=== PATIENT | female | born 1950 | race African-American/Black ===

== ENCOUNTER 2016-12-11 08:54 | Inpatient (IN) ==
[2016-12-09 15:09] LABS: Apearance,Urine Slightly Hazy (Clear); Basophils # 0.1 10*3/uL (0.0-0.2); Bilirubin,Urine Negative (Negative); Blood, Urine Negative (Negative); Eosinophils # 0.2 10*3/uL (0.0-0.87); Eosinophils % 2.6 % (0.00-10.9); Glucose,Urine (UA) Negative (Negative); Hematocrit 41.1 VOL% (35.7-47.0); Hemoglobin 13.7 GM/DL (12.0-16.0); Ketones,Urine Negative (Negative); Lymphocytes # 2.2 10*3/uL (1.4-4.0); Lymphocytes % 36.9 % (21.3-54.2); Mean Corpuscular HGB Conc 33.3 GM/DL (32-36); Mean Corpuscular Hemoglobin 29 PG (27-34); Mean Corpuscular Volume 87.3 FL (87-102); Mean Platelet Volume 11.2 FL (9.6-12.0); Monocytes # 0.6 10*3/uL (0.11-0.8); Monocytes % 9.8 % (1.7-12.7); Mucus,Urine Occasional /LPF (Occasional); Neutrophils # 2.9 10*3/uL (1.4-7.4); Neutrophils % 49.7 % (38.7-73.9); Nitrite,Urine Negative (Negative); Platelet Count 215 T/CUMM (130-400); Protein,Urine Negative; RBC,Urine 2 /HPF (0-4); Red Blood Count 4.71 MC/CUMM (3.8-5.5); Red Cell Distribution Width 13.2 % (9.3-17.3); Squamous Epithelial Cell,Urine Occasional /HPF (0-10); Urine Color Yellow (Yellow); Urine Specific Gravity 1.015 (1.001-1.035); Urine Urobilinogen < 2.0 EU/DL (0.2-1.0); WBC,Urine 9 /HPF (0-6); White Blood Count 5.8 T/CUMM (4-12)
[2016-12-09 15:21] LABS: PT Patient Result 10.7 SECS; Partial Thromboplastin Time 29.6 SECS (0-40)
[2016-12-09 15:39] LABS: Bilirubin,Total 0.6 MG/DL (0.2-1.0); Calcium 9.1 MG/DL (8.5-10.1); Osmolality,Calculated 279.3 MOS/KG (273-304); Potassium 4.2 MMOL/L (3.5-5.1); Total Protein 7.2 G/DL (6.4-8.3)
[~2016-12-11 08:54] MED LIST: VANCOMYCIN INJ 1,000 MG in SODIUM CHLORIDE 0.9% 250 ML IV ONE
--- NOTE | 2016-12-11 09:26 | EKG Report ---
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
[2016-12-11 09:39] LABS: Apearance,Urine Slightly Hazy (Clear); Bacteria,Urine Occasional /HPF (Few); Bilirubin,Urine Negative (Negative); Blood, Urine Small mg/dL (Negative); Glucose,Urine (UA) Negative (Negative); Ketones,Urine Negative (Negative); Mucus,Urine Occasional /LPF (Occasional); Nitrite,Urine Negative (Negative); Protein,Urine Negative; RBC,Urine 4 /HPF (0-4); Squamous Epithelial Cell,Urine Occasional /HPF (0-10); Urine Color Yellow (Yellow); Urine Specific Gravity 1.014 (1.001-1.035); Urine Urobilinogen < 2.0 EU/DL (0.2-1.0); WBC,Urine 61 /HPF (0-6)
--- NOTE | 2016-12-11 09:43 | History and Physical Update ---
History and Physical Update - History and Physical H&P was reviewed, the patient examined and there: are no changes in the patients condition since last H&P was completed. - Dictation Physical: refer to scanned H&P - Physical Exam History and Physical Changes: UTI noted pre-op. Antibiotics started yesterday.
--- NOTE | 2016-12-11 09:45 | XRay Report ---
XR chest 1V portable Indication: Respiratory preoperative evaluation Comparison: 28 January 2015 Findings: The heart and mediastinum are normal in size and configuration. The pulmonary vascularity is normal in caliber. No lung infiltrates, effusions, pneumothorax or other abnormality is demonstrated. Impression: Normal chest x-ray PROCEDURE INTERPRETED AT [facility] DEPARTMENT OF RADIOLOGY Final Report Signed by: Dr. George Jay
[2016-12-11] MEDS ORDERED: TRANEXAMIC ACID 1,000 MG/10 ML VIAL IV ONE (09:50)
[2016-12-11] MEDS ORDERED: EPINEPHrine 1 MG/ML VIAL ONE (09:57)
[2016-12-11] MEDS ORDERED: MORPHINE 10 MG/1 ML VIAL ONE (09:57)
[2016-12-11] MEDS ORDERED: methylPREDNISolone SOD SUC 125 MG/2 ML VIAL ONE (09:58)
[2016-12-11] MEDS ORDERED: BUPIVACAINE 0.5% 50 ML VIAL ONE (09:59)
[2016-12-11] MEDS ORDERED: VANCOMYCIN 1,000 MG VIAL ONE (10:11)
[2016-12-11] MEDS ORDERED: ceFAZolin 1,000 MG VIAL ONE (10:11)
[2016-12-11] MEDS ORDERED: DIAZEPAM 5 MG TABLET ONE (10:11)
[2016-12-11] MEDS ORDERED: SODIUM CHLORIDE 0.9% 100 ML IV ONE (10:12)
[2016-12-11] MEDS ORDERED: PANTOPRAZOLE 40 MG TABLET PO ONE (10:12)
[2016-12-11] MEDS ORDERED: DIAZEPAM 5 MG TABLET PO ONE (10:12)
[2016-12-11] MEDS ORDERED: MORPHINE 10 MG/10 ML VIAL ONE (10:14)
[2016-12-11] MEDS: LACTATED RINGERS 1,000 ML IV SCH ×3 (10:24→15:30)
[2016-12-11] MEDS ORDERED: PROPOFOL 200 MG/20 ML VIAL IV ONE (10:33)
[2016-12-11] MEDS ORDERED: PHENYLEPHRINE 1 MG/10 ML SYRINGE IV ONE (10:33)
[2016-12-11] MEDS ORDERED: LIDOCAINE 2% 5 ML VIAL ONE (10:33)
[2016-12-11] MEDS ORDERED: diphenhydrAMINE 50 MG/1 ML VIAL IV PRN (12:01)
[2016-12-11] MEDS ORDERED: hydrOXYzine HCL 25 MG/1 ML VIAL IM PRN (12:01)
[2016-12-11] MEDS ORDERED: ONDANSETRON 4 MG/2 ML VIAL IV PRN (12:01)
[2016-12-11] MEDS ORDERED: LACTATED RINGERS 1,000 ML IV SCH (12:30)
[2016-12-11] MEDS ORDERED: SODIUM CHLORIDE 0.9% 1,000 ML IV SCH (12:30)
[2016-12-11] MEDS ORDERED: NALOXONE 0.4 MG/ML VIAL IV PRN (13:35)
[2016-12-11] MEDS ORDERED: diphenhydrAMINE CAP 25 MG CAPSULE PO PRN (13:35)
[2016-12-11] MEDS ORDERED: ZALEPLON 5 MG CAPSULE PO PRN (13:35)
[2016-12-11] MEDS ORDERED: GLUCAGON 1 MG VIAL IM PRN (13:35)
[2016-12-11] MEDS ORDERED: MAGNESIUM HYDROXIDE SUSP 30 ML UDCUP PO PRN (13:35)
[2016-12-11] MEDS ORDERED: DEXTROSE 50% 25 GM/50 ML VIAL IV PRN (13:35)
[2016-12-11] MEDS ORDERED: MIDAZOLAM 2 MG/2 ML VIAL ONE (14:00)
[2016-12-11] MEDS ORDERED: SODIUM CHLORIDE 0.9% 250 ML IV ONE (14:01)
[2016-12-11] MEDS ORDERED: fentaNYL 100 MCG/2 ML VIAL ONE (14:01)
[2016-12-11] MEDS ORDERED: ACETAMINOPHEN 1,000 MG/100 ML VIAL IV ONE (14:01)
[2016-12-11] MEDS ORDERED: LACTATED RINGERS 1,000 ML IV ONE (14:01)
[2016-12-11] MEDS ORDERED: ePHEDrine 50 MG/ML AMP ONE (14:06)
--- NOTE | 2016-12-11 14:11 | Anesthesia Post-Op ---
Anesthesia Post OP - Post Ansesthetic Evaluation Patient seen in post op: Yes Resp: within normal limits CV: within normal limits Mental: within normal limits Temp: within normal limits Hjpa-Wm-Baddhrxhz: within normal limits Nausea and Vomiting: within normal limits Pain: within normal limits
[2016-12-11] MEDS: MORPHINE PCA 30 MG/30 ML SYRINGE IV SCH (14:17)
[2016-12-11 14:19] LABS: Apearance,Urine CLEAR (Clear); Bilirubin,Urine Negative (Negative); Blood, Urine Small mg/dL (Negative); Glucose,Urine (UA) Negative (Negative); Ketones,Urine Negative (Negative); Nitrite,Urine Negative (Negative); Protein,Urine Negative; RBC,Urine 7 /HPF (0-4); Squamous Epithelial Cell,Urine Occasional /HPF (0-10); Urine Color Yellow (Yellow); Urine Specific Gravity 1.015 (1.001-1.035); Urine Urobilinogen < 2.0 EU/DL (0.2-1.0); WBC,Urine 1 /HPF (0-6)
--- NOTE | 2016-12-11 15:01 | XRay Report ---
XR hip 1V RT Indication: Joint replacement (right hip) Comparison: Right femur x-ray dated September 25, 2015 Technique: Single frontal view of the right hip Findings: Status post total right hip arthroplasty. No evidence of immediate hardware failure. Surgical drain and superficial skin angel overlie the hip. Subcutaneous and joint space air noted which is likely postoperative. IMPRESSION: Status post total right hip arthroplasty. PROCEDURE INTERPRETED AT [facility] DEPARTMENT OF RADIOLOGY Final Report Signed by: Dr Dominick Crenshaw
[2016-12-11] MEDS: INSULIN LISPRO 100 UNIT/ML SUBCUT SCH ×2 (16:29→21:01)
--- NOTE | 2016-12-11 16:47 | Orthopedic Progress Note ---
Assessment and Plan (1) Status post total replacement of right hip Status: Acute Assessment and plan: Routine perioperative antibiotics Rocephin for UTI noted on admit DVT prophylaxis beginning Friday Out of bed with therapy twice daily Current Visit: Yes Orthopedics - Subjective Interval history: Patient is lying in the bed comfortably. She has no complaints. On exam her dressings clean and dry. She has a 2+ dorsalis pedis pulse. She can wiggle her toes, she can plantarflex and dorsiflex the ankle. Exam - Constitutional Vitals: Period Temp Pulse Resp BP Sys/Damico Pulse Ox Last 24 Hr 97.3 F-97.9 F 52-74 16-20 99-128/57-91 98-100 Results - Labs CBC & BMP: 12/09/16 14:54 12/09/16 14:54
[2016-12-11] MEDS: KETOROLAC 15 MG/1 ML VIAL IV SCH ×2 (17:16→23:36)
[2016-12-11] MEDS: cefTRIAXone 1,000 MG in SODIUM CHLORIDE 0.9% 100 ML IV SCH (17:16)
[2016-12-11] MEDS: ACETAMINOPHEN 500 MG TABLET PO SCH ×2 (17:16→23:36)
[2016-12-11] MEDS: metFORMIN 500 MG TABLET PO SCH (17:16)
[2016-12-11] MEDS: DOCUSATE SODIUM 100 MG CAPSULE PO SCH (21:01)
[2016-12-11] MEDS: SIMVASTATIN 20 MG TABLET PO SCH (21:01)
[2016-12-11] MEDS: ceFAZolin 2,000 MG in PREMIX 1 EACH IV SCH (21:03)
[2016-12-12] MEDS: LACTATED RINGERS 1,000 ML IV SCH ×4 (01:06→21:17)
[2016-12-12] MEDS: ceFAZolin 2,000 MG in PREMIX 1 EACH IV SCH (03:25)
[2016-12-12] MEDS: KETOROLAC 15 MG/1 ML VIAL IV SCH ×2 (05:11→13:26)
[2016-12-12] MEDS: ACETAMINOPHEN 500 MG TABLET PO SCH ×2 (05:13→12:48)
--- NOTE | 2016-12-12 07:15 | Orthopedic Progress Note ---
Assessment and Plan (1) Status post total replacement of right hip Status: Acute Assessment and plan: It was noted on postoperative radiographs that the cable around the proximal femur did not hold and was loose around the femoral neck. I discussed this with the patient this morning. I have recommended that we remove the cable. I believe that the posterior medial calcar will be stable and the stem should not subside due to the collar. Risks and benefits were discussed, we will return to the operating suite today for removal. Current Visit: Yes Orthopedics - Subjective Interval history: Pain is currently controlled. Patient has no complaints. On exam her dressings clean and dry, she is neurovascularly intact in the right lower extremity. Exam - Constitutional Vitals: Period Temp Pulse Resp BP Sys/Damico Pulse Ox Last 24 Hr 97.1 F-97.9 F 52-74 16-20 91-128/46-91 98-100 Results - Labs CBC & BMP: 12/12/16 07:35 12/12/16 07:35
[2016-12-12] MEDS: INSULIN LISPRO 100 UNIT/ML SUBCUT SCH ×4 (08:07→22:38)
[2016-12-12 08:26] LABS: Basophils % 0.3 % (0.0-0.8); Eosinophils % 0.5 % (0.00-10.9); Hematocrit 31.2 VOL% (35.7-47.0); Immature Granulocytes % 0.4 %; Immature Granulocytes Absolute 0.03 #; Lymphocytes # 1.4 10*3/uL (1.4-4.0); Lymphocytes % 18.5 % (21.3-54.2); Mean Corpuscular HGB Conc 32.7 GM/DL (32-36); Mean Corpuscular Hemoglobin 30 PG (27-34); Mean Corpuscular Volume 91.2 FL (87-102); Mean Platelet Volume 11.5 FL (9.6-12.0); Monocytes # 0.9 10*3/uL (0.11-0.8); Monocytes % 11.8 % (1.7-12.7); Neutrophils # 5.2 10*3/uL (1.4-7.4); Neutrophils % 68.5 % (38.7-73.9); Platelet Count 179 T/CUMM (130-400); Red Blood Count 3.42 MC/CUMM (3.8-5.5); Red Cell Distribution Width 13.3 % (9.3-17.3); White Blood Count 7.6 T/CUMM (4-12)
[2016-12-12 08:27] LABS: Hemoglobin 10.2 GM/DL (12.0-16.0)
[2016-12-12 08:49] LABS: Potassium 4.2 MMOL/L (3.5-5.1)
[2016-12-12] MEDS: DOCUSATE SODIUM 100 MG CAPSULE PO SCH ×2 (08:49→21:15)
[2016-12-12] MEDS: metFORMIN 500 MG TABLET PO SCH ×2 (08:49→18:54)
[2016-12-12] MEDS ORDERED: ceFAZolin 2,000 MG in SODIUM CHLORIDE 0.9% 100 ML IV ONE (09:00)
[2016-12-12] MEDS ORDERED: METOCLOPRAMIDE 10 MG/2 ML VIAL IV ONE (11:00)
[2016-12-12] MEDS ORDERED: ACETAMINOPHEN 325 MG TABLET PO PRN (13:37)
[2016-12-12] MEDS: MORPHINE PCA 30 MG/30 ML SYRINGE IV SCH (15:03)
[2016-12-12] MEDS ORDERED: DEXTROSE 50% 25 GM/50 ML VIAL IV PRN (16:43)
--- NOTE | 2016-12-12 16:52 | Anesthesia Post-Op ---
Anesthesia Post OP - Post Ansesthetic Evaluation Patient seen in post op: Yes Resp: within normal limits CV: within normal limits Mental: within normal limits Temp: within normal limits Ioje-Yu-[id number]: within normal limits Nausea and Vomiting: within normal limits Pain: within normal limits
[2016-12-12] MEDS ORDERED: SEVOFLURANE 1 UNIT/15 MINUTE INH ONE (16:56)
[2016-12-12] MEDS ORDERED: ONDANSETRON 4 MG/2 ML VIAL ONE (16:56)
[2016-12-12] MEDS ORDERED: MIDAZOLAM 2 MG/2 ML VIAL ONE (16:56)
[2016-12-12] MEDS ORDERED: fentaNYL 100 MCG/2 ML VIAL ONE (16:56)
[2016-12-12] MEDS ORDERED: PROPOFOL 200 MG/20 ML VIAL IV ONE (16:56)
--- NOTE | 2016-12-12 17:04 | XRay Report ---
Referring Physician: Jeffrey Vu Exam: XR right hip OR Date: December 12, 2016 at 3:34 PM Reason: Hardware removal right hip Comparison: Right hip x-rays December 11, 2016 Findings: One image of the right hip was provided after performance of the procedure. Fluoroscopy time was 19.0 seconds. The patient is again status post right total hip replacement. The previously seen surgical wire/catheter projecting at the right hip is no longer identified. No acute fracture or osseous destructive process is seen. Impression: Image is presumed satisfactory for the purpose of the procedure. PROCEDURE INTERPRETED AT [facility] DEPARTMENT OF RADIOLOGY Final Report Signed by: Dr. Promise Ogden
[2016-12-12] MEDS: cefTRIAXone 1,000 MG in SODIUM CHLORIDE 0.9% 100 ML IV SCH (18:54)
[2016-12-12] MEDS: SIMVASTATIN 20 MG TABLET PO SCH (21:15)
[2016-12-12] MEDS: CELECOXIB 200 MG CAPSULE PO SCH (21:15)
[2016-12-12] MEDS: ceFAZolin 2,000 MG in SODIUM CHLORIDE 0.9% 100 ML IV SCH (21:20)
[2016-12-13] MEDS: ceFAZolin 2,000 MG in SODIUM CHLORIDE 0.9% 100 ML IV SCH (03:44)
[2016-12-13 05:06] LABS: Basophils % 0.2 % (0.0-0.8); Eosinophils % 0.5 % (0.00-10.9); Hematocrit 31.7 VOL% (35.7-47.0); Hemoglobin 10.3 GM/DL (12.0-16.0); Immature Granulocytes % 0.4 %; Immature Granulocytes Absolute 0.03 #; Lymphocytes # 1.2 10*3/uL (1.4-4.0); Lymphocytes % 14.9 % (21.3-54.2); Mean Corpuscular HGB Conc 32.5 GM/DL (32-36); Mean Corpuscular Hemoglobin 30 PG (27-34); Mean Corpuscular Volume 90.8 FL (87-102); Mean Platelet Volume 11.9 FL (9.6-12.0); Monocytes # 0.9 10*3/uL (0.11-0.8); Monocytes % 11.3 % (1.7-12.7); Neutrophils % 72.7 % (38.7-73.9); Platelet Count 169 T/CUMM (130-400); Red Blood Count 3.49 MC/CUMM (3.8-5.5); Red Cell Distribution Width 13.3 % (9.3-17.3); White Blood Count 8.3 T/CUMM (4-12)
[2016-12-13] MEDS: LACTATED RINGERS 1,000 ML IV SCH (07:04)
--- NOTE | 2016-12-13 07:06 | Orthopedic Progress Note ---
Assessment and Plan (1) Status post total replacement of right hip Status: Acute Assessment and plan: DVT prophylaxis Continue antibiotics for UTI, will discontinue tomorrow Out of bed with therapy twice daily Discharge planning Current Visit: Yes Orthopedics - Subjective Interval history: Patient is currently comfortable, she had some pain last night but it has improved. On exam, her dressings clean and dry, she is neurovascularly intact. Hematocrit is 31 Exam - Constitutional Vitals: Period Temp Pulse Resp BP Sys/Damico Pulse Ox Last 24 Hr 97.7 F-100.1 F 69-108 12-110 93-139/52-83 90-100 Results - Labs CBC & BMP: 12/13/16 02:49 12/12/16 07:35
--- NOTE | 2016-12-13 07:12 | Discharge Summary ---
Hospital Course - Hospital Course Hospital Course: 66-year-old female admitted hospital following total hip arthroplasty. She tolerated procedure well was transferred to floor in stable condition postoperatively. Postoperative radiographs noted that there was failure of the cerclage cable, she was returned to the operating suite on postoperative day #1 for retrieval of the broken cable. No other complications were noted. She received routine antibiotics and thromboprophylaxis. She received Rocephin for a urinary tract infection noted on preoperative testing. She did well with therapy and once she was in bleeding safely she was subsequently discharged. Time of discharge her wound was clean and dry she is neurovascularly intact. Diagnosis - Discharge Diagnosis (1) Status post total replacement of right hip Status: Acute Specialty Discharge - Follow Up or Referrals Follow up with: Jeffrey Vu MD [Physician] - 12/26/16 8:00 am Discharge Plan - Discharge Data Disposition: Home Health Service Condition at Discharge: Stable Discharge Diet: advance to your usual diet Activity: ambulate only with your walker Hygiene: may shower Weight Bearing at Discharge: partial weight bearing (50lb PWB) Driving: not until seen by doctor Contact your physician if you experience:: fever over 101, Difficulty voiding, Redness or swelling, Nausea/Vomiting, Shortness of breath, Bleeding, pain uncontrolled by pain medications Wound / Dressing Care Instructions: Leave dressing in place until Friday, 2016, then change daily. Okay to shower, no tub soaks. Flavio out 12/26/2016 - Discharge Medications New HYDROcodone/ACETAMIN 7.5-325 [[place] 7.5-325] 1 - 2 tablet PO Q4H PRN #60 tablet PRN Reason: Pain Moderate (4-7) Aspirin EC Tab 325 mg PO DAILY #30 tablet Continue Simvastatin 20 mg PO BEDTIME metFORMIN [Glucophage] 500 mg PO BID W/MEALS Discontinued Aspirin [Ecotrin] 81 mg PO DAILY - Follow Up or Referral Follow Up: Jeffrey Vu MD [Physician] - 12/26/16 8:00 am - Forms/Instructions Additional Discharge Instructions: 50 pounds partial weightbearing, total hip precautions Exam - Constitutional Vitals: Period Temp Pulse Resp BP Sys/Damico Pulse Ox Last 24 Hr 97.7 F-100.1 F 69-108 12-110 93-139/52-83 90-100 Discharge Results Procedures and tests throughout hospitalization: Pending Orders 12/11/16 Urine Culture Routine 12/14/16 04:00 Comp Blood Count Auto Diff IN AM Labs on day of discharge: Labs from last 24 hours 12/13/16 12/13/16 12/12/16 06:54 02:49 18:59 WBC 8.3 RBC 3.49 L Hgb 10.3 L Hct 31.7 L MCV 90.8 MCH 30 MCHC 32.5 RDW 13.3 Plt Count 169 MPV 11.9 Neut % (Auto) 72.7 Lymph % (Auto) 14.9 L [place] % (Auto) 11.3 Eos % (Auto) 0.5 Baso % (Auto) 0.2 Neut # (Auto) 6.0 Lymph # (Auto) 1.2 L [place] # (Auto) 0.9 H Eos # (Auto) 0.0 Baso # (Auto) 0.0 Immature Gran % 0.4 Nucleated RBC % 0.0 Immature Gran # 0.03 Nucleated RBCs # 0.00 Sodium Potassium Chloride Carbon Dioxide Anion Gap BUN Creatinine GFR Calculation BUN/Creatinine Ratio Glucose POC Glucose 168 H 146 H Calculated Osmolality Calcium 12/12/16 12/12/16 12/12/16 17:41 11:06 07:35 WBC RBC Hgb Hct MCV MCH MCHC RDW Plt Count MPV Neut % (Auto) Lymph % (Auto) [place] % (Auto) Eos % (Auto) Baso % (Auto) Neut # (Auto) Lymph # (Auto) [place] # (Auto) Eos # (Auto) Baso # (Auto) Immature Gran % Nucleated RBC % Immature Gran # Nucleated RBCs # Sodium 143 Potassium 4.2 Chloride 106 Carbon Dioxide 29 Anion Gap 12.2 BUN 15 Creatinine 0.80 GFR Calculation 103 BUN/Creatinine Ratio 18.00 Glucose 143 H POC Glucose 106 102 Calculated Osmolality 287.0 Calcium 8.0 L 12/12/16 12/12/16 07:35 07:12 WBC 7.6 D RBC 3.42 L D Hgb 10.2 L D Hct 31.2 L MCV 91.2 MCH 30 MCHC 32.7 RDW 13.3 Plt Count 179 MPV 11.5 Neut % (Auto) 68.5 Lymph % (Auto) 18.5 L [place] % (Auto) 11.8 Eos % (Auto) 0.5 Baso % (Auto) 0.3 Neut # (Auto) 5.2 Lymph # (Auto) 1.4 [place] # (Auto) 0.9 H Eos # (Auto) 0.0 Baso # (Auto) 0.0 Immature Gran % 0.4 Nucleated RBC % 0.0 Immature Gran # 0.03 Nucleated RBCs # 0.00 Sodium Potassium Chloride Carbon Dioxide Anion Gap BUN Creatinine GFR Calculation BUN/Creatinine Ratio Glucose POC Glucose 132 H Calculated Osmolality Calcium Preliminary micro results at discharge 12/11/16 Unknown Urine Culture - Preliminary Urine,Voided No Growth at 24 hours. DS: Provider Date of admission: 12/11/16 08:54 Primary care physician: . No PCP Attending physician on admission: Jeffrey Vu MD Consults: 12/11/16 13:35 Consult to Case Mgmt/Social Srvs [CONS] Routine Reason for Case Mgmt/Social Srvs: Rehab Home Health Equipment Consult Comment: Bedside Commode, deliver to room 319 before D/C; Pt 5ft 7in 197 lbs. 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 12/12/16 16:59 Consult to Physical Therapy [CONS] Routine Reason for Physical Therapy: Other Consult Comment: Deliver a Standard Walker to room 319 before pt is D/C'd Discharging clinician: Jeffrey Vu MD
[2016-12-13] MEDS: INSULIN LISPRO 100 UNIT/ML SUBCUT SCH ×4 (09:31→22:26)
[2016-12-13] MEDS: metFORMIN 500 MG TABLET PO SCH ×2 (09:31→17:30)
[2016-12-13] MEDS: DOCUSATE SODIUM 100 MG CAPSULE PO SCH ×2 (09:31→20:10)
[2016-12-13] MEDS: ENOXAPARIN 40 MG/0.4 ML SYRINGE SUBCUT SCH (12:49)
[2016-12-13] MEDS: cefTRIAXone 1,000 MG in SODIUM CHLORIDE 0.9% 100 ML IV SCH (19:21)
[2016-12-13] MEDS: CELECOXIB 200 MG CAPSULE PO SCH (20:10)
[2016-12-13] MEDS: SIMVASTATIN 20 MG TABLET PO SCH (20:10)
[2016-12-14 06:57] LABS: Basophils % 0.5 % (0.0-0.8); Eosinophils # 0.2 10*3/uL (0.0-0.87); Eosinophils % 2.8 % (0.00-10.9); Hematocrit 31.6 VOL% (35.7-47.0); Hemoglobin 10.3 GM/DL (12.0-16.0); Immature Granulocytes % 0.4 %; Immature Granulocytes Absolute 0.03 #; Mean Corpuscular HGB Conc 32.6 GM/DL (32-36); Mean Corpuscular Hemoglobin 29 PG (27-34); Mean Corpuscular Volume 90.3 FL (87-102); Mean Platelet Volume 10.9 FL (9.6-12.0); Monocytes # 0.9 10*3/uL (0.11-0.8); Monocytes % 11.1 % (1.7-12.7); Neutrophils # 5.1 10*3/uL (1.4-7.4); Neutrophils % 61.2 % (38.7-73.9); Platelet Count 170 T/CUMM (130-400); Red Cell Distribution Width 13.2 % (9.3-17.3); White Blood Count 8.3 T/CUMM (4-12)
[2016-12-14] MEDS: INSULIN LISPRO 100 UNIT/ML SUBCUT SCH ×4 (09:24→20:32)
[2016-12-14] MEDS: metFORMIN 500 MG TABLET PO SCH ×2 (09:25→16:50)
[2016-12-14] MEDS: ENOXAPARIN 40 MG/0.4 ML SYRINGE SUBCUT SCH (09:25)
[2016-12-14] MEDS: DOCUSATE SODIUM 100 MG CAPSULE PO SCH ×2 (09:25→19:59)
--- NOTE | 2016-12-14 13:08 | Orthopedic Progress Note ---
Assessment and Plan (1) Status post total replacement of right hip Status: Acute Assessment and plan: Cont care: PT, pain control, DVT prophy d/c planning to swing bed Current Visit: Yes Orthopedics - Subjective Interval history: pt s/e with family in room. c/o mild pain to right hip. Sat in chair this morning. Denies numbness, tingling. Exam - Constitutional Vitals: Period Temp Pulse Resp BP Sys/Damico Pulse Ox Last 24 Hr 97.3 F-98.4 F 73-88 18-20 107-128/54-70 92-96 - Extremities Exam Extremities exam: Present: normal inspection (RLE: dressing c/d/i, comp soft, sensation intact, full AROM toes,ankle, dp/pt 2+) Results - Labs CBC & BMP: 12/14/16 06:40 12/12/16 07:35 Lab Results: I have reviewed the past 24 hour labs Specialty Discharge - Follow Up or Referrals Follow up with: Jeffrey Vu MD [Physician] - 12/26/16 8:00 am
[2016-12-14] MEDS: HYDROmorphone 2 MG/1 ML VIAL IV PRN (15:08)
[2016-12-14] MEDS: cefTRIAXone 1,000 MG in SODIUM CHLORIDE 0.9% 100 ML IV SCH (17:09)
[2016-12-14] MEDS: CELECOXIB 200 MG CAPSULE PO SCH (19:59)
[2016-12-14] MEDS: SIMVASTATIN 20 MG TABLET PO SCH (19:59)
--- NOTE | 2016-12-15 09:06 | Orthopedic Progress Note ---
Assessment and Plan (1) Status post total replacement of right hip Status: Acute Assessment and plan: Cont care: PT, pain control, DVT prophy d/c planning to swing bed Current Visit: Yes Orthopedics - Subjective Interval history: Patient seen and examined. States she ambulated with physical therapy yesterday. Denies complaints. Exam - Constitutional Vitals: Period Temp Pulse Resp BP Sys/Damico Pulse Ox Last 24 Hr 97.8 F-99.1 F 71-96 16-20 112-128/58-77 92-96 - Expanded Right Lower Hip exam: Present: normal inspection (Right lower extremity: Dressing clean, dry , intact. Full active range of motion foot and ankle. Compartments soft. Sensation intact. Cap refill brisk. Calf supple) Results - Labs CBC & BMP: 12/14/16 06:40 12/12/16 07:35 Lab Results: I have reviewed the past 24 hour labs Specialty Discharge - Follow Up or Referrals Follow up with: Jeffrey Vu MD [Physician] - 12/26/16 8:00 am
[2016-12-15] MEDS: INSULIN LISPRO 100 UNIT/ML SUBCUT SCH ×4 (09:12→21:56)
[2016-12-15] MEDS: DOCUSATE SODIUM 100 MG CAPSULE PO SCH ×2 (09:30→20:02)
[2016-12-15] MEDS: ENOXAPARIN 40 MG/0.4 ML SYRINGE SUBCUT SCH (09:30)
[2016-12-15] MEDS: metFORMIN 500 MG TABLET PO SCH ×2 (09:30→16:57)
[2016-12-15] MEDS: HYDROmorphone 2 MG/1 ML VIAL IV PRN (19:05)
[2016-12-15] MEDS: SIMVASTATIN 20 MG TABLET PO SCH (20:02)
[2016-12-15] MEDS: CELECOXIB 200 MG CAPSULE PO SCH (20:02)
[2016-12-16] MEDS: INSULIN LISPRO 100 UNIT/ML SUBCUT SCH ×2 (07:44→11:34)
--- NOTE | 2016-12-16 07:51 | Orthopedic Progress Note ---
Assessment and Plan (1) Status post total replacement of right hip Status: Acute Assessment and plan: DVT prophylaxis Will stop antibiotics for urinary tract infection Discharge to Sow swing bed when available Current Visit: Yes Orthopedics - Subjective Interval history: Patient's pain is currently controlled. She was able to ambulate into the hallway yesterday with therapy. On exam her dressings clean and dry, she is neurovascularly intact in the right lower extremity. Exam - Constitutional Vitals: Period Temp Pulse Resp BP Sys/Damico Pulse Ox Last 24 Hr 96.4 F-99.1 F 69-84 16-20 100-122/58-68 94-99 Results - Labs CBC & BMP: 12/14/16 06:40 12/12/16 07:35 Specialty Discharge - Follow Up or Referrals Follow up with: Jeffrey Vu MD [Physician] - 12/26/16 8:00 am
[2016-12-16] MEDS: metFORMIN 500 MG TABLET PO SCH (08:51)
[2016-12-16] MEDS: DOCUSATE SODIUM 100 MG CAPSULE PO SCH (08:51)
[2016-12-16] MEDS: ENOXAPARIN 40 MG/0.4 ML SYRINGE SUBCUT SCH (08:51)
[2016-12-16 11:29] VITALS: BP 115/60
== END 2016-12-16 15:30 | disposition home health service (06) | DRG 470 ==
LOC: N.3E 08:54
PROVIDERS: ADMIT Orthopaedic Surgery; ATTEND Orthopaedic Surgery